=== PATIENT | male | born 1940 | race Caucasian/White ===

== ENCOUNTER 2019-06-08 07:20 | Day surgery (SDC) ==
--- NOTE | 2019-06-07 10:44 | EKG Report ---
Test Performed on : 06/07/2019 10:42:29 AM Test Reason : PAT Blood Pressure : / mmHG Vent. Rate : 065 BPM Atrial Rate : 065 BPM P-R Int : 154 ms QRS Dur : 086 ms QT Int : 396 ms P-R-T Axes : 040 052 005 degrees QTc Int : 411 ms Normal sinus rhythm. Minimal voltage criteria for LVH, may be normal variant Borderline ECG No previous ECGs available Confirmed by Osiris WEEKS, Carmine ([id number]) on 06/08/2019 8:48:18 AM
[2019-06-07 10:57] LABS: URINE SOURCE VOIDED
[2019-06-07 11:03] LABS: BASO# 0.03 X1000 (0.0-0.2); BASO% 0.3 % (0.0-0.8); EOS# 0.12 X1000 (0.0-0.7); EOS% 1.1 % (0.0-10.0); HEMATOCRIT 44.1 % (42.0-52.0); HEMOGLOBIN 14.9 g/dL (14.0-18.0); IMM GRAN# 0.04 X1000 (0.0-0.04); IMM GRAN% 0.4 % (0.0-0.5); LYMPH# 2.19 X1000 (1.2-3.4); LYMPH% 20.8 % (20.5-51.1); MCH 30.5 PG (27-31); MCHC 33.8 g/dL (33-37); MCV 90.4 FL (81-99); MONO# 0.96 X1000 (0.11-0.59); MONO% 9.1 % (1.7-9.3); MPV 10.1 FL (7.4-10.4); NEUT# 7.19 X1000 (1.4-6.5); NEUT% 68.3 % (42.2-75.2); PLT 169 X1000 (130-400); RBC 4.88 XMIL (4.7-6.1); RDW 12.5 % (11.5-14.5); WBC 10.53 X1000 (4.8-10.8)
[2019-06-07 11:22] LABS: BILIRUBIN URINE NEGATIVE (NEGATIVE); BLOOD URINE NEGATIVE (NEGATIVE); COLOR YELLOW; GLUCOSE URINE NEGATIVE (NEGATIVE); KETONE URINE NEGATIVE (NEGATIVE); LEUKOCYTES URINE NEGATIVE (NEGATIVE); NITRITE URINE NEGATIVE (NEGATIVE); PH URINE 5.5; PROTEIN URINE NEGATIVE (NEGATIVE); SP GRAVITY URINE 1.013; TURBIDITY URINE CLEAR (CLEAR); UROBILINOGEN URINE NORMAL (NORMAL)
[2019-06-07 11:23] LABS: UR EPITHELIAL CELLS <10 /HPF (<10); URINE BACTERIA NEGATIVE /HPF; URINE RBC <10 /HPF (<10); URINE WBC <10 /HPF (<10)
[2019-06-07 11:29] LABS: AGAP 12; ALB/GLOB RATIO 1.3; ALBUMIN 4.3 g/dL (3.5-5.0); ALKALINE PHOSPHATASE 67 U/L (32-122); BUN 13 mg/dL (8-22); CALCIUM 9.1 mg/dL (8.8-10.2); CHLORIDE 104 mmol/L (98-107); COSMO 285; CREATININE 0.9 mg/dL (0.7-1.2); ESTIMATED GFR > 60; GLUCOSE 93 mg/dL (70-104); GOT 15 U/L (10-34); GPT 14 U/L (10-44); POTASSIUM 4.4 mmol/L (3.5-5.1); SODIUM 143 mmol/L (136-145); TCO2 27 mmol/L (25-35); TOTAL BILIRUBIN 0.45 mg/dL (0.20-1.00); TOTAL PROTEIN 7.6 g/dL (6.3-8.3)
--- NOTE | 2019-06-07 11:30 | Diag Imaging Result Doc PS360 ---
CHEST-2 VIEWS - 06/07/2019 INDICATION: PAT COMPARISON: None FINDINGS: The lungs are normally expanded and clear. Heart size and mediastinal contours are normal. No pneumothorax or pleural effusion. Small calcified granulomas in left lung base. IMPRESSION: Negative exam. Electronically signed by Charly Carr 06/07/2019 11:28 AM
[2019-06-08] MEDS ORDERED: DIPRIVAN 1% ONE ×2 (07:37→14:19)
[2019-06-08] MEDS ORDERED: XYLOCAINE-MPF 2% ONE ×2 (07:37→14:21)
[2019-06-08] MEDS ORDERED: LR 1,000 ML ONE (07:47)
[2019-06-08] MEDS ORDERED: KEFZOL 1 GM/D5W 1 GM/50 ML IVPB ONE (07:47)
[2019-06-08] MEDS ORDERED: HYDROGEN PEROXIDE SOLUTION ONE (11:28)
[2019-06-08] MEDS ORDERED: EPHEDRINE ONE (11:42)
[2019-06-08] MEDS: NORCO-10 ONE ×2 (12:44→23:54)
[2019-06-08] MEDS ORDERED: NS 1,000 ML ONE (14:03)
[2019-06-08] MEDS ORDERED: FENTANYL ONE (14:19)
[2019-06-08] MEDS ORDERED: QUELICIN (DOSE) ONE (14:21)
[2019-06-08] MEDS ORDERED: ROBINUL ONE (14:21)
[2019-06-08] MEDS ORDERED: NORCO-10 PO PRN (16:28)
[2019-06-08] MEDS ORDERED: ZOFRAN IV PRN (16:29)
[2019-06-08] MEDS ORDERED: ZOFRAN PO PRN (16:29)
[2019-06-08] MEDS ORDERED: D5 NS 1,000 ML IV SCH (17:00)
[2019-06-08] MEDS ORDERED: ZOCOR PO SCH (21:00)
--- NOTE | 2019-06-08 22:10 | OPERATIVE NOTE ---
PROCEDURE DATE: 06/08/2019 PREOPERATIVE NOTE: Necrotic abscess, right groin; probable ruptured sebaceous cyst. PROCEDURE: Incision and drainage. Patient was brought to the operating room. After satisfactory induction of IV and LMA anesthesia, his right groin was prepped and draped in the appropriate manner. The suppurative area that had 2 small microperforations was opened with anaerobic and aerobic cultures being obtained. This appeared to be a ruptured sebaceous cyst. 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 The capsule was sharply excised. Hemostasis was obtained by electrocautery. The wound was irrigated with peroxide after anaerobic and aerobic cultures were obtained. It was packed with quarter-inch iodoform, fluffs and ABDs, and mesh panties were placed. He was subsequently awakened and extubated in the operating room and transferred to Recovery. The estimated blood loss was less than 10 mL. cc: Alec Barker MD
[2019-06-08] MEDS: PERIDEX MT SCH (22:29)
[2019-06-08] MEDS: KEFZOL 1 GM/D5W 1 GM/50 ML IVPB IV SCH (22:30)
[2019-06-08] MEDS: NIACIN PO SCH (22:30)
[2019-06-09] MEDS: KEFZOL 1 GM/D5W 1 GM/50 ML IVPB IV SCH (05:03)
[2019-06-09 07:46] VITALS: BP 139/50
[2019-06-09] MEDS: PERIDEX MT SCH (08:28)
[2019-06-09] MEDS ORDERED: CORDARONE PO SCH (09:00)
[2019-06-09] MEDS ORDERED: MAG-OX PO SCH (09:00)
[2019-06-09] MEDS ORDERED: PRINIVIL PO SCH (09:00)
[2019-06-09] MEDS ORDERED: VITAMIN D PO SCH (09:00)
[2019-06-09] MEDS ORDERED: XARELTO PO SCH (09:00)
[2019-06-09] MEDS: NIACIN PO SCH (09:41)
== END 2019-06-09 10:52 | disposition home or self-care (01) ==
LOC: OR 07:20 → 4N 07:20 → OR 06-09 10:52
PROVIDERS: ATTEND Surgery